=== PATIENT | female | born 1965 | race Caucasian/White ===

== ENCOUNTER 2017-02-21 22:28 | Emergency (ER) | payer MEDICAID, SELFPAY ==
[2017-02-21 22:37] VITALS: BP 142/78; PULSE 95; RESP 18; TEMP 36.7; O2SAT 97; BMI 20.1
[2017-02-21 22:38] VITALS: BMI 20.1
--- NOTE | 2017-02-21 22:40 | XR_ITS ---
XR wrist LT min 3V HISTORY: Posttraumatic pain ITS.REASON: fall ORDERING PHYSICIAN: Rajan Phillips MD PATIENT AGE: 52 years COMPARISON: None FINDINGS: No fracture or dislocation. No lytic or blastic change. There is normal mineralization.. The joint spaces are well-preserved. No significant degenerative/arthritic changes. No erosive changes evident.. There is a thin metallic linear density projecting over the proximal aspect of the fourth and fifth metacarpal region. Cannot exclude the possibility that this is intraosseous within the base of the fifth metacarpal. CT may confirm if clinically warranted. IMPRESSION: 1. No acute fracture. 2. Positive for metallic foreign body
--- NOTE | 2017-02-21 22:59 | HMH.EDGENADL ---
ED Disposition Clinical Impression: Sprain of wrist, left Qualifiers: Encounter type: initial encounter Qualified Code(s): S63.502A - Unspecified sprain of left wrist, initial encounter Foreign body of hand, left Qualifiers: Encounter type: initial encounter Qualified Code(s): S60.552A - Superficial foreign body of left hand, initial encounter Disposition: Home, Self-Care Condition on Discharge: Good Instructions: DI for Wrist Sprain Additional Instructions: wear splint and see pcp for follow up - Critical Care Critical Care Time: No Attestation: On 02/21/17, the high probability of a clinically significant, sudden or life threatening deterioration of the following system(s) required my full and direct attention, intervention and personal management. The time I documented below is in addition to time spent performing reported procedures but includes the following listed in this critical care notation. Medical Decision Making - Medical Records Medical records reviewed: Yes: I reviewed the patient's medical records. Vital Signs: 02/21/17 22:37 Temperature 98.1 F Temperature Source Oral Pulse Rate [Right Brachial] 95 H Respiratory Rate 18 Blood Pressure [Right Arm] 142/78 Blood Pressure Mean [Right Arm] 99 Blood Pressure Source [Right Arm] Automatic Cuff Blood Pressure Position [Right Arm] Sitting 02 Sat by Pulse Oximetry 97 Oxygen Delivery Method Room Air Orders (Tests/Meds): ORDERS Category Date Time Status XR wrist LT min 3V Stat Exams 02/21/17 22:40 Taken - Radiology Data #1 Image(s): Wrist Image Reviewed: Yes I reviewed the patient's radiology image Preliminary Findings: No Fracture Seen - [place] Inquiry Pt receiving controlled substance: No General Adult HPI - General Chief complaint: PAIN Stated complaint: AO 02/21/17 @ 1100 fell inj to left wrist Time Seen by Provider: 02/21/17 22:59 Mode of Arrival: Family Vehicle Limitations: No Limitations Description of Symptoms (Recalled from ER Triage Doc. by RN): S/P FALL THIS AM WITH C/O LEFT WRIST PAIN. 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 - Related Data Home Medications Medication Instructions Recorded Confirmed ALPRAZolam [Xanax 1mg tab] 1 mg PO QID 02/21/17 02/21/17 Citalopram Hydrobromide [Celexa] 20 mg PO DAILY 02/21/17 02/21/17 Doxepin HCl [Doxepin HCl] 75 mg PO BID 02/21/17 02/21/17 Topiramate [Topiramate] 100 mg PO BID 02/21/17 02/21/17 Allergies Allergy/AdvReac Type Severity Reaction Status Date / Time amoxicillin [From AUGMENTIN] Allergy Unknown Verified 02/21/17 23:27 cefdinir [From OMNICEF] Allergy Unknown Verified 02/21/17 23:27 clavulanic acid Allergy Unknown Verified 02/21/17 23:27 [From AUGMENTIN] [facility] History I have reviewed the patient's past medical history: Yes Medical History: Denies:: Cancer, Diabetes Mellitus Type 1, Diabetes Mellitus Type 2, MRSA Laterality Cases: Left: Carpal Tunnel Release, Right: Other Amputation: No Fractures: No - *Social History Smoking Status: Current every day smoker Tobacco Type: cigarettes Alcohol Intake: never - Psychiatric History Expresses thoughts of harming self/others: None Suicide Plan Description: No Plan ROS Obtained: Yes All systems reviewed & no additional complaints - Constitutional Constitutional: Denies fever(s) - Eyes Eyes: Denies change in vision - ENT Ears, Nose, Mouth, and Throat: Denies sore throat - Cardiovascular Cardiovascular: Denies chest pain at rest - Respiratory Respiratory: No cough - Gastrointestinal Gastrointestingal: Denies: abdominal pain - Musculoskeletal Musculoskeletal: Reports joint pain, Reports limited range of motion - Integumentary/Breasts Skin/Breast: Denies rash - Neurologic Neurologic: Denies seizure-like activity Physical Exam - General General appearance: alert - Head Head exam: atraumatic - Eye Eye exam: Present: PERRL, EOMI - ENT ENT exam: Present: muco
--- NOTE | 2017-02-21 23:05 | PC.NURSE ---
TO RADIOLOGY PER W/C
[2017-02-21 23:40] VITALS: BP 137/82; PULSE 96; RESP 18; O2SAT 97
== END 2017-02-21 23:41 | disposition home or self-care (01) ==
PROVIDERS: Emergency Provider Emergency Medicine; Family Provider Nurse Practitioner
DX: S63.502A Unspecified sprain of left wrist, initial encounter (principal); S60.552A Superficial foreign body of left hand, initial encounter; Y93.9 Activity, unspecified; F17.210 Nicotine dependence, cigarettes, uncomplicated; W18.30XA Fall on same level, unspecified, initial encounter; Y92.9 Unspecified place or not applicable
CPT/HCPCS: 73110; 99284